=== PATIENT | female | born 1995 | race Caucasian/White ===

== ENCOUNTER 2018-12-17 20:52 | Emergency (ER) | payer OTHER ==
[2018-12-17 21:18] VITALS: RESP 16; TEMP 99; O2SAT 99
[2018-12-17 21:20] LABS: SQUAMOUS EPITHIAL 10 /hpf (0-5); URINE BILIRUBIN NEGATIVE (NEGATIVE); URINE BLOOD 1+ (NEGATIVE); URINE CLARITY Hazy (Clear); URINE COLOR Yellow (YELLOW); URINE GLUCOSE (UA) NORMAL (Normal); URINE LEUKOCYTE ESTERASE 3+ Leu/uL (Negative); URINE PROTEIN 1+ mg/dL (NEGATIVE); URINE UROBILINOGEN NORMAL mg/dL (0.2-1.0)
[2018-12-17 21:21] LABS: HCG,QUALITATIVE URINE NEGATIVE (NEGATIVE); URINE BACTERIA FEW (<OCC)
--- NOTE | 2018-12-17 21:52 | C.PDOC ---
History Of Present Illness Patient is a 23 year old female who presents to the ED c/o lower abdominal pain with dysuria and urinary frequency. Patient states that she was seen by a clinic yesterday and was given abx. She states that her pain has gotten worse today. She denies any fever or vomiting. Time Seen by Provider: 12/17/18 21:26 Chief Complaint (Nursing): Female Genitourinary History Per: Patient History/Exam Limitations: no limitations Quality Of Discomfort: "Pain" Associated Symptoms: Urinary Symptoms. denies: Fever, Vomiting Recent travel outside of the [place]: No Additional History Per: Patient Past Medical History Reviewed: Historical Data, Nursing Documentation, Vital Signs Vital Signs: Last Vital Signs Temp 99 F 12/17/18 20:59 Pulse 84 12/17/18 20:59 Resp 16 12/17/18 20:59 BP 116/73 12/17/18 20:59 Pulse Ox 99 12/17/18 20:59 - Medical History PMH: No Chronic Diseases Surgical History: No Surg Hx Family History: States: No Known Family Hx - Social History Hx Alcohol Use: No Hx Substance Use: No - Immunization History Hx Tetanus Toxoid Vaccination: No Hx Influenza Vaccination: No Hx Pneumococcal Vaccination: No Review Of Systems Constitutional: Negative for: Fever Gastrointestinal: Positive for: Abdominal Pain (lower ). Negative for: Vomiting Genitourinary: Positive for: Dysuria, Frequency Physical Exam - Physical Exam Appears: Non-toxic, No Acute Distress Skin: Normal Color, Warm, Dry, No Rash Head: Atraumatic, Normacephalic Eye(s): bilateral: Normal Inspection Oral Mucosa: Moist Throat: Normal Neck: Normal ROM, Supple Chest: Symmetrical, No Deformity Cardiovascular: Rhythm Regular, No Murmur Respiratory: Normal Breath Sounds, No Rales, No Rhonchi, No Wheezing Gastrointestinal/Abdominal: Soft, No Tenderness Back: Normal Inspection, No CVA Tenderness Extremity: Normal ROM, No Tenderness, No Swelling Neurological/Psych: Oriented x3, Normal Speech, Normal Cognition, Normal Motor Gait: Steady ED Course And Treatment - Laboratory Results Lab Results: Urine Color Yellow (YELLOW) 12/17/18 21:07 Urine Clarity Hazy (Clear) 12/17/18 21:07 Urine pH 5.0 (5.0-8.0) 12/17/18 21:07 Ur Specific Rawlings 1.013 (1.003-1.030) 12/17/18 21:07 Urine Protein 1+ mg/dL (NEGATIVE) H 12/17/18 21:07 Urine Glucose (UA) Normal mg/dL (Normal) 12/17/18 21:07 Urine Ketones Negative mg/dL (NEGATIVE) 12/17/18 21:07 Urine Blood 1+ (NEGATIVE) H 12/17/18 21:07 Urine Nitrate Negative (NEGATIVE) 12/17/18 21:07 Urine Bilirubin Negative (NEGATIVE) 12/17/18 21:07 Urine Urobilinogen Normal mg/dL (0.2-1.0) 12/17/18 21:07 Ur Leukocyte Esterase 3+ Jag/uL (Negative) H 12/17/18 21:07 Urine WBC (Auto) 287 /hpf (0-5) H 12/17/18 21:07 Urine RBC (Auto) 45 /hpf (0-3) H 12/17/18 21:07 Ur Squamous Epith Cells 10 /hpf (0-5) H 12/17/18 21:07 Urine Bacteria Few (<OCC) H 12/17/18 21:07 Urine HCG, Qual Negative (NEGATIVE) 12/17/18 21:07 Urine HCG, Qual Negative (NEGATIVE) 12/17/18 21:07 O2 Sat by Pulse Oximetry: 99 (on RA) Pulse Ox Interpretation: Normal Medical Decision Making Medical Decision Making: Plan: Urine Culture Urinalysis Urinalysis HCG Motrin 600mg PO Pyridium 200mg PO The patient is (+) for UTI. Patient was instructed to continue the Bactrim as she only took one dose. Cipro Rx will be given if the culture is (+) for another bacteria. Disposition - Disposition Referrals: [facility] at [facility] [Outside] Disposition: HOME/ ROUTINE Disposition Time: 22:02 Condition: GOOD Additional Instructions: Follow up with the medical doctor within 1-2 days. return if worsened. 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 - Scribe Statement The provider has reviewed the documentation as recorded by the Octaviaibfarzad Joyce All medical record entries made by the Octaviaibfarzad were at my direction and personally dictated by me. I have reviewed the chart and agree that the record accurately reflects my personal performance of the history, physical exam, medical decision making, and the department course for this patient. I have also personally directed, reviewed, and agree with the discharge instructions and disposition.
[2018-12-17 22:22] VITALS: BP 108/69; PULSE 78
== END 2018-12-17 22:20 | disposition home or self-care (01) ==
LOC: C.ER 20:52
DX: N39.0 Urinary tract infection, site not specified (principal)

== ENCOUNTER 2018-12-19 04:17 | Emergency (ER) | payer OTHER ==
[2018-12-19 04:36] VITALS: RESP 18; O2SAT 99
--- NOTE | 2018-12-19 04:58 | C.PDOC ---
History Of Present Illness 23 year old female seen yesterday for UTI, switched from bactrim to cipro with ibuprofen and pyridium. Patient took ibuprofen at 5pm for pain but did not realize she was suppose to take it for fever as well, spiked a fever at home and came in. Denies other complaints. Time Seen by Provider: 12/19/18 04:19 Chief Complaint (Nursing): Fever History Per: Patient History/Exam Limitations: no limitations Onset/Duration Of Symptoms: Hrs Current Symptoms Are (Timing): Still Present Sick Contacts (Context): None Associated Symptoms: Fever Recent travel outside of the [place]: No Past Medical History Reviewed: Historical Data, Nursing Documentation, Vital Signs Vital Signs: Last Vital Signs Temp 101.2 F H 12/19/18 04:26 Pulse 121 H 12/19/18 04:26 Resp 18 12/19/18 04:26 BP 115/74 12/19/18 04:26 Pulse Ox 99 12/19/18 04:26 - Medical History PMH: Anemia Family History: States: No Known Family Hx - Social History Hx Alcohol Use: No Hx Substance Use: No - Immunization History Hx Tetanus Toxoid Vaccination: No Hx Influenza Vaccination: No Hx Pneumococcal Vaccination: No Review Of Systems Constitutional: Positive for: Fever. Negative for: Chills Eyes: Negative for: Pain, Redness ENT: Negative for: Mouth Swelling Cardiovascular: Negative for: Chest Pain, Palpitations Respiratory: Negative for: Cough, Shortness of Breath Gastrointestinal: Negative for: Nausea, Vomiting, Diarrhea Musculoskeletal: Negative for: Back Pain Skin: Negative for: Rash Neurological: Negative for: Weakness, Numbness Physical Exam - Physical Exam Appears: Well, Non-toxic, No Acute Distress Skin: Normal Color, Warm, No Rash Head: Atraumatic, Normacephalic Eye(s): bilateral: Normal Inspection, PERRL, EOMI Oral Mucosa: Moist Neck: Normal ROM, Supple Chest: Symmetrical Cardiovascular: Rhythm Regular Respiratory: No Accessory Muscle Use, Other (Normal inspiratory effort) Gastrointestinal/Abdominal: Soft, No Tenderness Back: No CVA Tenderness Neurological/Psych: Oriented x3, Normal Speech, Normal Cranial Nerves (Grossly intact) ED Course And Treatment O2 Sat by Pulse Oximetry: 99 (Room air) Pulse Ox Interpretation: Normal Medical Decision Making Medical Decision Making: Motrin given for fever. Explained to patient that ibuprofen is to treat fever as well and explained how to take the rest of her medications, patient stable for dc to fu with primary. 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 - Scribe Statement The provider has reviewed the documentation as recorded by the Scribfarzad Oshea All medical record entries made by the Dejon were at my direction and personally dictated by me. I have reviewed the chart and agree that the record accurately reflects my personal performance of the history, physical exam, medical decision making, and the department course for this patient. I have also personally directed, reviewed, and agree with the discharge instructions and disposition.
[2018-12-19 05:16] VITALS: BP 123/76; PULSE 78; TEMP 100.1
== END 2018-12-19 05:16 | disposition home or self-care (01) ==
LOC: C.ER 04:17 → SUPCPDRO 04:17 → C.ER 05:16
DX: N39.0 Urinary tract infection, site not specified (principal); R50.9 Fever, unspecified